=== PATIENT | male | born 1960 | race Caucasian/White ===

== ENCOUNTER 2021-07-14 22:25 | Emergency (ER) | payer BC ==
[2021-07-14] MEDS ORDERED: Lidocaine 1% with EPINEPHrine 1:100,000 50 ML MDV INFILT STA (22:38)
[2021-07-14] MEDS ORDERED: Bacitracin Oint 1 GM U/D Packet TOP ONE (22:38)
== END 2021-07-15 00:17 | disposition home or self-care (01) ==
LOC: JP.ED 22:25
DX: S61.012A Laceration without foreign body of left thumb without damage to nail, initial encounter (principal); Z88.2 Allergy status to sulfonamides; W26.8XXA Contact with other sharp object(s), not elsewhere classified, initial encounter
CPT/HCPCS: 12002; 99281; 99282-25